=== PATIENT | male | born 1970 | race American Indian/Alaskan Native ===

== ENCOUNTER 2017-08-26 22:19 | Emergency (ER) | payer SELFPAY ==
[2017-08-26] MEDS ORDERED: ZOFRAN IV ONE (23:11)
[2017-08-26] MEDS ORDERED: ASPIRIN PO ONE (23:11)
[2017-08-26] MEDS ORDERED: NACL 0.9% 1000 ML 1,000 ML IV ONE (23:12)
[2017-08-26] MEDS ORDERED: PROVENTIL IH ONE (23:13)
[2017-08-26 23:44] LABS: Basophils % (Auto) 0.6 % (0.0-1.8); Hemoglobin 14.3 gm/dl (11.8-15.2); Lymphocytes # (Auto) 0.3 K/mm3 (1.2-5.4); Lymphocytes % (Auto) 7.8 % (13.4-35.0); Mean Corpuscular HGB Conc 33 % (32-34); Mean Corpuscular Hemoglobin 31 pg (28-32); Mean Corpuscular Volume 94 fl (84-94); Monocytes # (Auto) 0.4 K/mm3 (0.0-0.8); Platelet Count 103 K/mm3 (140-440); Red Cell Distribution Width 13.4 % (13.2-15.2)
[2017-08-27] LABS: BUN/Creatinine Ratio 18; Blood Urea Nitrogen 9 mg/dL (9-20); Calcium 10.2 mg/dL (8.4-10.2); Hemolysis Index 5
--- NOTE | 2017-08-27 08:35 | Emergency Department Report ---
ED Chest Pain HPI - General Chief Complaint: Chest Pain Stated Complaint: CP Time Seen by Provider: 08/27/17 08:23 Source: patient Mode of arrival: Ambulatory Limitations: No Limitations - History of Present Illness Initial Comments: Patient is 47 years old male with past medical history of hypertension. Presented to the ER with diffuse chest pain, sharp in nature no radiation. Pain associated with shortness of breath cough productive with yellowish sputum. Patient reported vomiting. No fever. MD Complaint: chest pain Pain Location: other (diffuse) Pain Radiation: none Severity: moderate Severity scale (0 -10): 10 Quality: sharp Consistency: intermittent Worsens With: inspiration re: nausea, vomting - Related Data Previous Rx's Medication Instructions Recorded Last Taken Type HYDROcodone/APAP 5-325 [[place] 1 each PO Q6HR PRN #20 tablet 07/12/16 Unknown Rx 5/325] Allergies Allergy/AdvReac Type Severity Reaction Status Date / Time No Known Allergies Allergy Verified 07/12/16 16:14 Heart Score - HEART Score History: Slightly suspicious EKG: Normal Age: 45-65 Risk factors: 1-2 risk factors Troponin: < normal limit HEART Score: 2 - Critical Actions Critical Actions: 0-3 pts:0.9-1.7%risk of adverse cardiac event.Candidate for discharge ED Review of Systems ROS: Stated complaint: CP Other details as noted in HPI Comment: All other systems reviewed and negative Constitutional: denies: chills, fever Respiratory: cough, shortness of breath, wheezing. denies: orthopnea Cardiovascular: chest pain, palpitations Gastrointestinal: nausea, vomiting. denies: abdominal pain, diarrhea, hematemesis, melena, hematochezia Genitourinary: denies: urgency Neurological: denies: headache, weakness, numbness, paresthesias ED Past Medical Hx - Past Medical History Hx Hypertension: Yes Additional medical history: High Cholesterol - Surgical History Past Surgical History?: No - Social History Smoking Status: Never Smoker Substance Use Type: None - Medications Home Medications: Home Medications Medication Instructions Recorded Confirmed Last Taken Type HYDROcodone/APAP 5-325 [[place] 1 each PO Q6HR PRN #20 tablet 07/12/16 Unknown Rx 5/325] ED Physical Exam - General Limitations: No Limitations General appearance: alert, other (patient was actively vomiting) - Head Head exam: Present: atraumatic, normocephalic, normal inspection - Eye Eye exam: Present: normal appearance, PERRL - ENT ENT exam: Present: normal exam, mucous membranes dry - Neck Neck exam: Present: normal inspection, full ROM. Absent: tenderness, meningismus, lymphadenopathy - Respiratory Respiratory exam: Present: respiratory distress, wheezes, rhonchi, accessory muscle use, decreased breath sounds, prolonged expiratory. Absent: rales, stridor, chest wall tenderness - Cardiovascular Cardiovascular Exam: Present: tachycardia. Absent: systolic murmur, diastolic murmur - GI/Abdominal GI/Abdominal exam: Present: soft, normal bowel sounds. Absent: distended, tenderness, guarding, rebound, rigid, organomegaly, mass, bruit, pulsatile mass , hernia - Back Exam Back exam: Present: normal inspection. Absent: tenderness, CVA tenderness (R), CVA tenderness (L), muscle spasm, paraspinal tenderness, vertebral tenderness - Neurological Exam Neurological exam: Present: alert, oriented X3, CN II-XII intact, normal gait, reflexes normal. Absent: abnormal gait, motor sensory deficit - Skin Skin exam: Present: warm, intact, normal color. Absent: cyanosis, diaphoretic, erythema, urticaria, petechiae ED Course Vital Signs 08/26/17 08/26/17 08/27/17 22:28 23:04 07:15 Temperature 98.2 F 98.2 F Pulse Rate 116 H 98 H Respiratory 18 18 15 Rate Blood Pressure 143/96 143/96 O2 Sat by Pulse 98 98 99 Oximetry 08/27/17 08/27/17 07:26 08:00 Temperature Pulse Rate 85 Respiratory 9 L Rate Blood Pressure 171/101 O2 Sat by Pulse 90 99 Oximetry FENG score - Feng Score Age > 65: (0) No Aspirin use within the Past 7 Days: (0) No 3 or more CAD Risk Factors: (0) No 2 or more Angina events in past 24 hrs: (0) No Known CAD with more than 50% Stenosis: (0) No Elevated Cardiac Markers: (0) No ST Deviation Greater than 0.5mm: (0) No FENG Score: 0 ED Medical Decision Making - Lab Data Result diagrams: 08/26/17 23:21 08/26/17 23:21 - EKG Data -: EKG Interpreted by Ak EKG shows normal: sinus rhythm - EKG Data Interpretation: no acute changes - Radiology Data Radiology results: image reviewed interpreted by me: Chest x-ray showed no acute abnormalities. Critical care attestation.: If time is entered above; I have spent that time in minutes in the direct care of this critically ill patient, excluding procedure time. ED Disposition Clinical Impression: Chest pain, Acute bronchitis Disposition: DC- TO HOME OR SELFCARE Is pt being admited?: No Condition: Stable Instructions: Chest Pain (ED), Acute Bronchitis (ED) Referrals: BRUCE REINOSO MD [Primary Care Provider] - 3-5 Days
[2017-08-27 10:35] VITALS: BP 161/102
--- NOTE | 2017-08-27 11:05 | XRay Report ---
AP CHEST: HISTORY: chest pain AP view of the chest demonstrates a normal mediastinal and cardiac contour with clear lungs and normal bony and soft tissue structures. IMPRESSION: Unremarkable AP chest.
== END 2017-08-27 10:42 | disposition home or self-care (01) ==
LOC: ED 22:19
DX: J20.9 Acute bronchitis, unspecified (principal); R07.89 Other chest pain; R11.10 Vomiting, unspecified; I10 Essential (primary) hypertension; E78.00 Pure hypercholesterolemia, unspecified
CPT/HCPCS: 36415; 71045; 80048; 84484; 85025; 93005; 93010; 96361; 96374; 99284; J2405; J7030

== ENCOUNTER 2018-06-05 08:33 | Emergency (ER) | payer OTHER ==
--- NOTE | 2018-06-05 10:09 | Emergency Department Report ---
HPI - General Chief Complaint: Medical Clearance Time Seen by Provider: 06/05/18 09:52 - HPI HPI: 47-year-old -Mex[place] male presents to the emergency department with his aunt and uncle, whom he lives with, with complaint of some delusions and hallucinations overnight. The patient says that he woke up around 1 in the morning and started seeing things that were not there. He thinks that he saw his cousin in his guest house and she was "changing the locks." He also says that he saw costumes Halloween type figures walking around. There was something also that bothered him about his pillow which she says is "stuffed" and when he poured apart, along with his blanket, he saw small animals there. He denies hearing any voices. He denies any suicidal or homicidal ideations. He denies any past psychiatric history. He has a medical history of hypertension. He denies any illicit drug use or tobacco abuse. The patient does drink daily but says he was not intoxicated at the time of these elucidations and/or delusions. He did drink yesterday. He denies any headache , chest pain, shortness of breath, tremors, nausea, vomiting or fever. ED Past Medical Hx - Past Medical History Previous Medical History?: Yes Hx Hypertension: Yes Additional medical history: High Cholesterol - Surgical History Past Surgical History?: No - Social History Smoking Status: Never Smoker Substance Use Type: Alcohol - Medications Home Medications: Home Medications Medication Instructions Recorded Confirmed Last Taken Type HYDROcodone/APAP 5-325 [[place] 1 each PO Q6HR PRN #20 tablet 07/12/16 Unknown Rx 5/325] Amoxicillin [Amoxicillin TAB] 875 mg PO BID #14 tablet 08/27/17 Unknown Rx Ondansetron [Zofran Odt] 4 mg PO Q8HR PRN #14 tab.rapdis 08/27/17 Unknown Rx RX: ALBUTEROL Inhaler (OR & NICU) 2 puff IH QID PRN #1 inhalation 08/27/17 Unknown Rx [ProAir HFA Inhaler] guaiFENesin/CODEINE [Robitussin AC] 10 ml PO TID PRN #100 ml 08/27/17 Unknown Rx ED Review of Systems ROS: Stated complaint: DELUSIONAL Other details as noted in HPI Comment: All other systems reviewed and negative Constitutional: denies: chills, fever Eyes: denies: eye pain, eye discharge, vision change ENT: denies: ear pain, throat pain Respiratory: denies: cough, shortness of breath, wheezing Cardiovascular: denies: chest pain, palpitations Gastrointestinal: denies: abdominal pain, nausea, diarrhea Genitourinary: denies: urgency, dysuria Musculoskeletal: denies: back pain, joint swelling, arthralgia Skin: denies: rash, lesions Neurological: denies: headache, weakness Psychiatric: visual hallucinations. denies: homicidal thoughts, suicidal thoughts Physical Exam - Physical Exam Vital Signs: Vital Signs 06/05/18 08:50 Temperature 99.5 F Pulse Rate 113 H Respiratory 18 Rate Blood Pressure 153/103 O2 Sat by Pulse 97 Oximetry Physical Exam: GENERAL: The patient is well-developed well-nourished. HEENT: Normocephalic. Atraumatic. Patient has moist mucous membranes. EYES: Extraocular motions are intact. Pupils are equal and reactive to light bilaterally. NECK: Supple. Trachea is midline. CHEST/LUNGS: Clear to auscultation. There is no respiratory distress noted. HEART/CARDIOVASCULAR: Regular. There is mild no tachycardia. There is no gallop rub or murmur. ABDOMEN: Abdomen is soft, nontender. Patient has normal bowel sounds. There is no abdominal distention. SKIN: Skin is warm and dry. NEURO: The patient is awake, alert, and oriented. The patient is cooperative. The patient has no focal neurologic deficits. The patient has normal speech and gait. MUSCULOSKELETAL: There is no tenderness or deformity. There is no limitation range of motion. There is no evidence of acute injury. PSYCH: Patient appears slightly anxious but otherwise is appropriate. ED Course Vital Signs 06/05/18 08:50 Temperature 99.5 F Pulse Rate 113 H Respiratory 18 Rate Blood Pressure 153/103 O2 Sat by Pulse 97 Oximetry ED Medical Decision Making - Lab Data Result diagrams: 06/05/18 10:07 06/05/18 10:07 - Medical Decision Making The patient presented with a complaint of some delusions and/or hallucinations that occurred overnight last night. However since being in the emergency department he has been awake, alert, calm and cooperative. No signs of any current delusions, hallucinations or responding to internal stimuli. She denies any suicidal or homicidal ideations. He does not appear to be someone who requires inpatient psychiatric treatment or to be made a 1013. His labs have been unremarkable other than some elevation in the liver enzymes that appears consistent with his daily alcohol consumption. His vital signs and stable throughout his ED course. He was seen by the psych assessment team that agrees with the assessment and for outpatient psychiatric follow-up. All of the imaging results and the plan for outpatient follow-up was discussed with the patient and his family and they understand and agree to the plan. - Differential Diagnosis alcohol withdrawal, schizophrenia, substance abuse Critical Care Time: No Critical care attestation.: If time is entered above; I have spent that time in minutes in the direct care of this critically ill patient, excluding procedure time. ED Disposition Clinical Impression: Delusions, Hallucinations Disposition: DC-01 TO HOME OR SELFCARE Is pt being admited?: No Condition: Stable Additional Instructions: You were seen today regarding the delusions and/or hallucinations that she had last night/early this morning. Please return to the emergency department immediately if these delusions return or if any further concerns or acute distress. It is recommended that he follow up with the [facility] but we have also given a referral for the [facility] on [address] to follow-up for further psychiatric evaluation. Please make sure to also follow up with your primary care physician regarding the elevated liver enzymes found on the labs that were done today. It is recommended that you quit drinking alcohol. Referrals: [facility] [Other] - [facility] [Outside] - 2-3 Days Time of Disposition: 14:03
[2018-06-05 10:41] LABS: Hematocrit 38.5 % (35.5-45.6); Hemoglobin 13.4 gm/dl (11.8-15.2); Mean Corpuscular HGB Conc 35 % (32-34); Mean Corpuscular Hemoglobin 32 pg (28-32); Mean Corpuscular Volume 92 fl (84-94); Red Blood Count 4.17 M/mm3 (3.65-5.03); Red Cell Distribution Width 13.2 % (13.2-15.2)
--- NOTE | 2018-06-05 10:42 | Cat Scan Report ---
CT HEAD WITHOUT CONTRAST: HISTORY: Altered mental status. TECHNIQUE: Sequential 2.5mm CT images. COMPARISON: none. FINDINGS: Cerebral Parenchyma: Within normal limits. Cerebellum: Within normal limits. Brainstem: Within normal limits. Ventricles: Normal. Sella: Normal. Extra-axial spaces: Normal. Basal Cisterns: Normal. Intracranial Hemorrhage: None. Midline Shift: None. Calvarium: Normal. Sinuses: Normal. Mastoid Air Cells: Normal. Visualized Orbits: Normal. IMPRESSION: Cranial CT scan within normal limits.
[2018-06-05 11:02] LABS: Bilirubin,Urine NEG (Negative); Blood,Urine SM (Negative); Color,Urine Straw (Yellow); Protein,Urine <15 mg/dL mg/dL (Negative); Urobilinogen,Urine < 2.0 mg/dL (<2.0); WBC,Urine < 1.0 /HPF (0.0-6.0)
[2018-06-05 11:34] LABS: Basophils % (Manual) 0 % (0.0-1.8); Eosinophils % (Manual) 0 % (0.0-4.3); Total Cells Counted 100
[2018-06-05 11:35] LABS: Platelet Estimate Cons; Stomatocytes Few
[2018-06-05 11:36] LABS: Platelet Count 168 K/mm3 (140-440)
[2018-06-05 11:45] LABS: Alanine Aminotransferase 62 units/L (7-56); Albumin 4.9 g/dL (3.9-5); BUN/Creatinine Ratio 25; Blood Urea Nitrogen 15 mg/dL (9-20); Calcium 9.9 mg/dL (8.4-10.2); Hemolysis Index 7
[2018-06-05 11:46] LABS: Amphetamine Screen,Urine PRESUMPTIVE NEGATIVE; Benzodiazepines Screen,Urine PRESUMPTIVE NEGATIVE; Cannabinoid Screen,Urine PRESUMPTIVE NEGATIVE; Cocaine Screen,Urine PRESUMPTIVE NEGATIVE; Methadone Screen,Urine PRESUMPTIVE NEGATIVE; Opiate Screen,Urine PRESUMPTIVE NEGATIVE
[2018-06-05 14:16] VITALS: BP 135/85
== END 2018-06-05 14:30 | disposition home or self-care (01) ==
LOC: ED 08:33
DX: F22 Delusional disorders (principal); R44.1 Visual hallucinations; I10 Essential (primary) hypertension; E78.00 Pure hypercholesterolemia, unspecified
CPT/HCPCS: 36415; 70450; 80053; 80307; 81001; 82140; 84443; 85007; 85025; 99284; G0480; 80320

== ENCOUNTER 2019-08-02 14:33 | Inpatient (IN) | payer OTHER ==
[2019-08-02] MEDS ORDERED: SODIUM CHLORIDE 0.9% 1000 ML 1,000 ML IV ONE (14:54)
--- NOTE | 2019-08-02 15:11 | Emergency Department Report ---
ED General Adult HPI - General Chief complaint: Chest Pain Stated complaint: FLU SX/CHEST PAIN/FEVER Time Seen by Provider: 08/02/19 14:48 Source: patient Mode of arrival: Ambulatory Limitations: No Limitations - History of Present Illness Initial comments: Patient is a 48-year-old male up since emergency room complaints of flulike symptoms, chest pain and fever. Patient states he's also had nausea and vomiting. Patient states his symptoms started yesterday. Patient states he had flu vaccine this year. Patient denies dizziness. Patient states he is fatigued. She also complains of shortness of breath. Patient states his symptoms are better with rest and worse with exertion. Patient states his chest pain is a 6 out of 10. Patient states his chest pain is nonradiating. Patient states chest pain is in the center of his chest. Patient was found to be diaphoretic and fatigued and hypotensive in triage and brought directly to patient care room. -: Sudden, days(s) (1 day ago) Severity scale (0 -10): 6 Quality: stabbing Consistency: constant Improves with: rest Worsens with: other Associated Symptoms: chest pain, cough, diaphoresis, fever/chills, loss of appet ite, malaise, nausea/vomiting, shortness of breath, weakness. denies: rash, seizure, syncope - Related Data Previous Rx's Medication Instructions Recorded Last Taken Type Lisinopril [Zestril TAB] 40 mg PO QDAY #30 tablet 07/21/18 Unknown Rx Pantoprazole [Protonix] 40 mg PO QDAY #30 tablet 07/21/18 Unknown Rx Metoprolol [Lopressor TAB] 100 mg PO BID #60 tablet 07/22/18 Unknown Rx Allergies Allergy/AdvReac Type Severity Reaction Status Date / Time No Known Allergies Allergy Verified 07/12/16 16:14 ED Review of Systems ROS: Stated complaint: FLU SX/CHEST PAIN/FEVER Other details as noted in HPI Constitutional: chills, diaphoresis, fever, malaise, weakness Eyes: denies: eye pain, eye discharge, vision change ENT: denies: ear pain, throat pain Respiratory: cough, shortness of breath. denies: wheezing Cardiovascular: chest pain. denies: palpitations Endocrine: no symptoms reported Gastrointestinal: abdominal pain, nausea, vomiting. denies: diarrhea Genitourinary: denies: urgency, dysuria Musculoskeletal: denies: back pain, joint swelling, arthralgia Skin: denies: rash, lesions Neurological: weakness. denies: headache, paresthesias Psychiatric: denies: anxiety, depression Hematological/Lymphatic: denies: easy bleeding, easy bruising ED Past Medical Hx - Past Medical History Previous Medical History?: Yes Hx Hypertension: Yes Hx Congestive Heart Failure: No Hx Diabetes: No Hx Asthma: No Hx COPD: No Hx HIV: No Additional medical history: High Cholesterol - Surgical History Past Surgical History?: No - Family History Family history: no significant - Social History Smoking Status: Never Smoker Substance Use Type: None - Medications Home Medications: Home Medications Medication Instructions Recorded Confirmed Last Taken Type Lisinopril [Zestril TAB] 40 mg PO QDAY #30 tablet 07/21/18 08/02/19 Unknown Rx Pantoprazole [Protonix] 40 mg PO QDAY #30 tablet 07/21/18 08/02/19 Unknown Rx Metoprolol [Lopressor TAB] 100 mg PO BID #60 tablet 07/22/18 08/02/19 Unknown Rx ED Physical Exam - General Limitations: No Limitations General appearance: alert, in distress - Head Head exam: Present: atraumatic, normocephalic - Eye Eye exam: Present: normal appearance - ENT ENT exam: Present: mucous membranes moist - Neck Neck exam: Present: normal inspection - Respiratory Respiratory exam: Present: normal lung sounds bilaterally. Absent: respiratory distress, wheezes, rales - Cardiovascular Cardiovascular Exam: Present: regular rate, normal rhythm. Absent: systolic murmur, diastolic murmur, rubs, gallop - GI/Abdominal GI/Abdominal exam: Present: soft, tenderness, normal bowel sounds. Absent: distended, guarding, rebound - Rectal Rectal exam: Present: deferred - Extremities Exam Extremities exam: Present: normal inspection - Back Exam Back exam: Present: normal inspection - Neurological Exam Neurological exam: Present: alert, oriented X3 - Psychiatric Psychiatric exam: Present: normal affect, normal mood - Skin Skin exam: Present: warm, intact, normal color, diaphoretic. Absent: rash ED Course Vital Signs 08/02/19 08/02/19 08/02/19 14:42 14:46 15:00 Temperature Pulse Rate 85 90 89 Respiratory 17 13 10 L Rate Blood Pressure 134/92 131/96 Blood Pressure [Right] O2 Sat by Pulse 100 100 Oximetry 08/02/19 08/02/19 08/02/19 15:37 15:46 16:00 Temperature 98.5 F Pulse Rate 88 91 H 80 Respiratory 18 10 L 18 Rate Blood Pressure 148/103 115/60 Blood Pressure 148/103 [Right] O2 Sat by Pulse 100 99 100 Oximetry 08/02/19 08/02/19 08/02/19 16:16 16:30 16:46 Temperature Pulse Rate 97 H 100 H 99 H Respiratory 16 12 12 Rate Blood Pressure 149/121 149/121 149/121 Blood Pressure [Right] O2 Sat by Pulse 97 99 98 Oximetry 08/02/19 08/02/19 08/02/19 17:00 17:16 17:30 Temperature Pulse Rate 103 H 95 H 98 H Respiratory 11 L 9 L 12 Rate Blood Pressure 149/121 119/78 119/78 Blood Pressure [Right] O2 Sat by Pulse 98 100 98 Oximetry 08/02/19 08/02/19 08/02/19 17:46 18:00 18:49 Temperature Pulse Rate 99 H 98 H 93 H Respiratory 12 12 19 Rate Blood Pressure 119/78 173/107 159/93 Blood Pressure [Right] O2 Sat by Pulse 97 100 Oximetry 08/02/19 08/02/19 08/02/19 19:00 19:16 19:30 Temperature Pulse Rate 87 92 H 93 H Respiratory 10 L 13 10 L Rate Blood Pressure 152/88 152/88 173/107 Blood Pressure [Right] O2 Sat by Pulse 98 98 99 Oximetry 08/02/19 08/02/19 08/02/19 19:46 20:00 20:10 Temperature Pulse Rate 91 H 89 106 H Respiratory 12 10 L 14 Rate Blood Pressure 159/93 192/108 192/108 Blood Pressure [Right] O2 Sat by Pulse 98 98 98 Oximetry 08/02/19 08/02/19 08/02/19 20:20 20:30 20:40 Temperature Pulse Rate 93 H 90 105 H Respiratory 20 12 17 Rate Blood Pressure 192/108 192/108 192/108 Blood Pressure [Right] O2 Sat by Pulse 99 97 97 Oximetry 08/02/19 08/02/19 08/02/19 20:50 21:00 21:09 Temperature 98 F Pulse Rate 87 82 Respiratory 12 15 Rate Blood Pressure 192/108 192/108 Blood Pressure [Right] O2 Sat by Pulse 98 99 Oximetry 08/02/19 21:10 Temperature Pulse Rate 84 Respiratory 15 Rate Blood Pressure 186/108 Blood Pressure [Right] O2 Sat by Pulse 99 Oximetry - Reevaluation(s) Reevaluation #1: Patient states better. Patient's heart rate improved. Patient's blood pressure stable. Patient has not had any further hypotension the ER. His initial blood pressure when he arrived to the acute care area of the ER was 140/60. 08/02/19 16:13 Reevaluation #2: Patient states he still having chest pain. 08/02/19 18:14 Reevaluation #3: Discussed all results with patient. I discussed plan of care patient. Patient agrees with plan of care and admission. Patient admitted to the hospitalist service. 08/02/19 20:15 - Consultations Consultation #1: 08/02/19 20:13 Hospitalist consulted for admission. Hospitalist to admit patient. ED Medical Decision Making - Lab Data Result diagrams: 08/02/19 15:29 08/02/19 15:29 - EKG Data -: EKG Interpreted by Me EKG shows normal: sinus rhythm, axis, intervals, QRS complexes, ST-T waves Rate: normal - EKG Data Interpretation: [facility] - Radiology Data Radiology results: report reviewed, image reviewed interpreted by me: No acute findings on chest x-ray. ADDENDUM CT abdomen pelvis w con INDICATION / CLINICAL INFORMATION: fever. TECHNIQUE: Axial CT imaging of abdomen and pelvis was obtained with IV contrast. Coronal and sagittal reformatted imaging obtained and reviewed. All CT scans at this location are performed using CT dose reduction for ALARA by means of automated exposure control. COMPARISON: 07/20/2018 FINDINGS: CT abdomen with contrast shows hepatic steatosis. Spleen, pancreas, kidneys, and adrenal glands all appear unremarkable. No gallbladder abnormality or biliary dilatation. CT pelvis is unremarkable. No pelvic mass, free fluid, or focal inflammatory ch idania. A normal appendix is present in the right lower quadrant. GI tract is grossly unremarkable. There is focal airspace disease in the right lower lobe posteriorly suggestive of pneumonia. No pleural effusion. No significant osseous abnormality. IMPRESSION: 1. No acute finding within the abdomen or pelvis. 2. Hepatic steatosis. 3. Right lower lobe airspace disease, most likely pneumonia. TD/TT: / CTA CHEST WITH IV CONTRAST INDICATION / CLINICAL INFORMATION: MAIN: fever N/V [id number] 100ML. TECHNIQUE: Axial CT images were obtained through the chest after injection of 100 mL IV contrast. 3 plane MIP and/or 3D reconstructions were produced. All CT scans at this location are performed using CT dose reduction for ALARA by means of automated exposure control. COMPARISON: Prior CTA chest, 07/20/2018 FINDINGS: PULMONARY ARTERIES: No pulmonary emboli. THORACIC AORTA: No significant abnormality. HEART: No significant abnormality. CORONARY ARTERIES: No significant calcification. PLEURA: No pleural effusion. No pneumothorax. LYMPH NODES: No significant adenopathy. LUNGS: Small amount of parenchymal disease is noted in the posterior right lower lobe possibly 3. Hepatic steatosis. ADDITIONAL FINDINGS: None. UPPER ABDOMEN: Prominent hepatic steatosis. SKELETAL STRUCTURES: No significant osseous abnormality. IMPRESSION: 1. No CT evidence for pulmonary embolism. 2. Right lower lobe parenchymal disease suspicious for pneumonia. - Medical Decision Making Patient is a 48-year-old [facility] emergency room with multiple complaints. Patient's complaints of chest pain, nausea vomiting, fever or chills, diaphoresis, abdominal pain, shortness of breath. Patient's initial blood pressure in triage was extremely low however patient has had normal blood pressures the entire time in the acute care of the ER. Patient was tachycardic. Patient given fluids. Patient/markable for metabolic acidosis, lactic acidosis, dehydration, normal WBC. Patient had a chest x-ray which was negative for acute findings. Patient then had a CTA to rule out a PE in found to have no PE but a right lower lobe pneumonia. Patient also had a CT of the abdomen due to his fever, nausea and vomiting, abdominal tenderness and no acute findings on abdominal CT. Patient admitted to the hospitalist service. - Differential Diagnosis pna. fever. cp. sob. pe. uri. cough. abd pain. viral gastro. Critical Care Time: Yes Critical care time in (mins) excluding proc time.: 65 Critical care attestation.: If time is entered above; I have spent that time in minutes in the direct care of this critically ill patient, excluding procedure time. Critical Care Time: 65 minutes ED Disposition Clinical Impression: Diaphoresis, Metabolic acidosis, Lactic acid acidosis Chest pain Qualifiers: Chest pain type: unspecified Qualified Code(s): R07.9 - Chest pain, unspecified Nausea & vomiting Qualifiers: Vomiting type: unspecified Vomiting Intractability: intractable Qualified Code(s): R11.2 - Nausea with vomiting, unspecified Fever Qualifiers: Fever type: unspecified Qualified Code(s): R50.9 - Fever, unspecified Pneumonia Qualifiers: Laterality: right Lung location: lower lobe of lung Abdominal pain Qualifiers: Abdominal location: generalized Qualified Code(s): R10.84 - Generalized abdominal pain Disposition: 09 OP ADMIT IP TO THIS HOSP Is pt being admited?: Yes Does the pt Need Aspirin: No Condition: Critical Time of Disposition: 20:08
[2019-08-02 16:02] LABS: Basophils % (Auto) 0.6 % (0.0-1.8); Eosinophils % (Auto) 0.3 % (0.0-4.3); Hematocrit 46.9 % (35.5-45.6); Hemoglobin 15.6 gm/dl (11.8-15.2); Lymphocytes # (Auto) 0.6 K/mm3 (1.2-5.4); Lymphocytes % (Auto) 9.5 % (13.4-35.0); Mean Corpuscular HGB Conc 33 % (32-34); Mean Corpuscular Volume 94 fl (84-94); Monocytes # (Auto) 0.7 K/mm3 (0.0-0.8); Monocytes % (Auto) 11.4 % (0.0-7.3); Platelet Count 278 K/mm3 (140-440); Red Blood Count 4.98 M/mm3 (3.65-5.03); Red Cell Distribution Width 13.8 % (13.2-15.2)
[2019-08-02 16:22] LABS: Alanine Aminotransferase 26 units/L (7-56); Albumin 4.7 g/dL (3.9-5); BUN/Creatinine Ratio 9; Blood Urea Nitrogen 7 mg/dL (9-20); Calcium 9.9 mg/dL (8.4-10.2); Hemolysis Index 85
[2019-08-02] MEDS ORDERED: SODIUM CHLORIDE 0.9% 1000 ML IV SOLN IV ONE (17:07)
[2019-08-02 17:21] LABS: Bilirubin,Urine NEG (Negative); Blood,Urine SM (Negative); Color,Urine Yellow (Yellow); Urobilinogen,Urine < 2.0 mg/dL (<2.0)
[2019-08-02] MEDS ORDERED: CEFEPIME/NS 2 GM/100 ML 2 GM/100 ML BAG IV ONE (17:33)
--- NOTE | 2019-08-02 19:05 | Cat Scan Report ---
CTA CHEST WITH IV CONTRAST INDICATION / CLINICAL INFORMATION: MAIN: fever N/V X2DAYS [id number] 100ML. TECHNIQUE: Axial CT images were obtained through the chest after injection of 100 mL IV contrast. 3 plane MIP an d/or 3D reconstructions were produced. All CT scans at this location are performed using CT dose redu ction for [facility] by means of automated exposure control. COMPARISON: Prior CTA chest, 07/20/2018 FINDINGS: PULMONARY ARTERIES: No pulmonary emboli. THORACIC AORTA: No significant abnormality. HEART: No significant abnormality. CORONARY ARTERIES: No significant calcification. PLEURA: No pleural effusion. No pneumothorax. LYMPH NODES: No significant adenopathy. LUNGS: Small amount of parenchymal disease is noted in the posterior right lower lobe possibly 3. Hepatic steatosis. ADDITIONAL FINDINGS: None. UPPER ABDOMEN: Prominent hepatic steatosis. SKELETAL STRUCTURES: No significant osseous abnormality. IMPRESSION: 1. No CT evidence for pulmonary embolism. 2. Right lower lobe parenchymal disease suspicious for pneumonia. Signer Name: Bridgette Caldwell MD Signed: 08/02/2019 7:00 PM Workstation Name: [id number]
--- NOTE | 2019-08-02 19:14 | Cat Scan Report ---
CTA CHEST WITH IV CONTRAST INDICATION / CLINICAL INFORMATION: cp. sob. TECHNIQUE: Axial CT images were obtained through the chest after injection of 100 mL IV contrast. 3 plane MIP an d/or 3D reconstructions were produced. All CT scans at this location are performed using CT dose redu ction for [facility] by means of automated exposure control. COMPARISON: None available. FINDINGS: PULMONARY ARTERIES: No pulmonary emboli. THORACIC AORTA: No significant abnormality. HEART: No significant abnormality. CORONARY ARTERIES: No significant calcification. PLEURA: No pleural effusion. No pneumothorax. LYMPH NODES: No significant adenopathy. LUNGS: Small amount of parenchymal disease is present in the posterior segment of the right lower lob e most likely representing small area of pneumonia. The remainder of the lungs are clear. ADDITIONAL FINDINGS: None. UPPER ABDOMEN: Hepatic steatosis. SKELETAL STRUCTURES: No significant osseous abnormality. IMPRESSION: 1. No CT evidence for pulmonary embolism. 2. Right lower lobe airspace disease most likely pneumonia. Signer Name: Bridgette Caldwell MD Signed: 08/02/2019 7:09 PM Workstation Name: [id number]
--- NOTE | 2019-08-02 19:31 | XRay Report ---
CHEST 1 VIEW 3:52 PM INDICATION / CLINICAL INFORMATION: fever.. COMPARISON: 06/23/18 FINDINGS: SUPPORT DEVICES: None. HEART / MEDIASTINUM: No significant abnormality. LUNGS / PLEURA: No significant pulmonary or pleural abnormality. No pneumothorax. ADDITIONAL FINDINGS: No significant additional findings. IMPRESSION: 1. No acute findings. No significant change. Signer Name: Errol Canas MD Signed: 08/02/2019 7:27 PM Workstation Name: [id number]
--- NOTE | 2019-08-02 20:25 | History and Physical Report ---
History of Present Illness Chief complaint: I feel sick, I dont know whats wrong with me History of present illness: 48 YO Male with HTN, HLD, Malnutrition presents to ED for evaluation. Pt states that he has experienced generalized weakness, malaise, subjective fever, nausea, and pain in the right side of his chest over the past 2 days, with persistently worsening symptoms over the past 1 day. Pt states that pain is 6/10, sharp, intermittent, substernal, nonradiating, worsened with exertion and deep breathing, relieved with rest. Pt acknowledges shortness of breath, nausea. Pt acknowledges influenza exposure. Pt transported to [facility] via private vehicle for further care and evaluation. Pt seen and evaluated in ED and found to have evidence of RLL Pneumonia on CT scan of the chest. Pt is diaphoretic and complai ns of chest discomfort with deep breathing. Pt admitted to medical floor and initiated on Pneumonia protocol for symptom management and further monitoring to assess response to treatment and possible decompensation. Pt prior cardiac workup on 07/06 reviewed. Pt denies chills, palpitations, trauma, prolonged travel/immobility, unilateral leg swelling, calf pain, individual/family history of DVT/PE/Blood Clotting Disorders. Prior admission on 07/20/18 reviewed. All medication listed at time of admission has been reconciled. Past History Past Medical History: hypertension, hyperlipidemia, other (see HPI) Past Surgical History: No surgical history, Other (reviewed) Social history: single. denies: smoking, alcohol abuse, prescription drug abuse Family history: CAD, hypertension Medications and Allergies Allergies Allergy/AdvReac Type Severity Reaction Status Date / Time No Known Allergies Allergy Verified 07/12/16 16:14 Home Medications Medication Instructions Recorded Confirmed Last Taken Type Lisinopril [Zestril TAB] 40 mg PO QDAY #30 tablet 07/21/18 08/02/19 Unknown Rx Pantoprazole [Protonix] 40 mg PO QDAY #30 tablet 07/21/18 08/02/19 Unknown Rx Metoprolol [Lopressor TAB] 100 mg PO BID #60 tablet 07/22/18 08/02/19 Unknown Rx Review of Systems Constitutional: fever, weakness, malaise, no weight loss, no weight gain Ears, nose, mouth and throat: no ear pain, no ear discharge, no tinnitis, no decreased hearing, no nose pain, no nasal congestion, no nasal discharge Cardiovascular: no chest pain, no orthopnea, no palpitations, no edema Respiratory: no cough, no cough with sputum, no hemoptysis Gastrointestinal: nausea, no abdominal pain, no vomiting, no diarrhea, no constipation, no hematemesis Genitourinary Male: no hematuria, no flank pain, no discharge, no urinary frequency, no urinary hesitancy Rectal: no pain, no incontinence, no bleeding Musculoskeletal: no neck stiffness, no neck pain, no low back pain, no shooting leg pain Integumentary: no rash, no pruritis, no redness, no sores, no wounds, no jaundice Neurological: no head injury, no transient paralysis, no paralysis, no weakness, no parathesias, no numbness, no tingling Psychiatric: no anxiety, no memory loss, no change in sleep habits, no sleep disturbances, no insomnia, no hypersomnia, no change in appetite Endocrine: no cold intolerance, no heat intolerance, no polyphagia, no excessive thirst, no polydipsia, no polyuria, no nocturia, no flushing Hematologic/Lymphatic: no easy bruising, no easy bleeding, no lymphedema Allergic/Immunologic: no urticaria, no allergic rhinitis, no wheezing, no persistent infections, no anaphylaxis Exam - Constitutional Vitals: Temp Pulse Resp BP Pulse Ox 98.5 F 91 H 12 159/93 98 08/02/19 16:00 08/02/19 19:46 08/02/19 19:46 08/02/19 19:46 08/02/19 19:46 General appearance: Present: mild distress - EENT Eyes: Present: PERRL ENT: hearing intact, clear oral mucosa - Neck Neck: Present: supple, normal ROM - Respiratory Respiratory effort: normal Respiratory: right: diminished - Cardiovascular Heart Sounds: Present: S1 & S2. Absent: rub, click - Extremities Extremities: pulses symmetrical, No edema Peripheral Pulses: within normal limits - Abdominal General gastrointestinal: Present: soft, non-tender, non-distended, normal bowel sounds Male genitourinary: Present: normal - Integumentary Integumentary: Present: clear, warm, dry - Musculoskeletal Musculoskeletal: gait normal, strength equal bilaterally - Psychiatric Psychiatric: appropriate mood/affect, intact judgment & insight - Neurologic Neurologic: CNII-XII intact, moves all extremities Results - Labs CBC & Chem 7: 08/02/19 15:29 12/15/19 15:29 Labs: Abnormal lab results 08/02/19 08/02/19 08/02/19 Range/Units 15:29 15:29 15:29 Hgb 15.6 H (11.8-15.2) gm/dl Hct 46.9 H (35.5-45.6) % Lymph % (Auto) 9.5 L (13.4-35.0) % Robeson % (Auto) 11.4 H (0.0-7.3) % Lymph # 0.6 L (1.2-5.4) K/mm3 Seg Neutrophils % 78.2 H (40.0-70.0) % Sodium 134 L (137-145) mmol/L Chloride 90.8 L (98-107) mmol/L Carbon Dioxide 21 L (22-30) mmol/L BUN 7 L (9-20) mg/dL Glucose 106 H (75-100) mg/dL Lactic Acid 2.20 H* (0.7-2.0) mmol/L AST 56 H (5-40) units/L Total Creatine Kinase (55-170) units/L Total Protein 8.7 H (6.3-8.2) g/dL 08/02/19 Range/Units 17:20 Hgb (11.8-15.2) gm/dl Hct (35.5-45.6) % Lymph % (Auto) (13.4-35.0) % Robeson % (Auto) (0.0-7.3) % Lymph # (1.2-5.4) K/mm3 Seg Neutrophils % (40.0-70.0) % Sodium (137-145) mmol/L Chloride (98-107) mmol/L Carbon Dioxide (22-30) mmol/L BUN (9-20) mg/dL Glucose (75-100) mg/dL Lactic Acid (0.7-2.0) mmol/L AST (5-40) units/L Total Creatine Kinase 173 H (55-170) units/L Total Protein (6.3-8.2) g/dL Assessment and Plan - Patient Problems (1) Pneumonia Current Visit: Yes Status: Acute Qualifiers: Laterality: right Lung location: lower lobe of lung Plan to address problem: Pneumonia protocol: IV antibiotic therapy, CBC, CMP, Chest X ray, CT Chest, supplemental oxygen, nebulizer therapy, pulse oximetry, NIPPV as clinically indicated, blood culture, (2) Hyponatremia syndrome Current Visit: Yes Status: Acute (3) HTN (hypertension) Current Visit: Yes Status: Acute Qualifiers: Hypertension type: unspecified Qualified Code(s): I10 - Essential (primary) hypertension Plan to address problem: IVF resuscitation therapy (4) HLD (hyperlipidemia) Current Visit: Yes Status: Acute Qualifiers: Hyperlipidemia type: mixed hyperlipidemia Qualified Code(s): E78.2 - Mixed hyperlipidemia Plan to address problem: low fat low cholesterol diet, supportive care (5) DVT prophylaxis Current Visit: Yes Status: Acute Plan to address problem: SCD to BLE while in bed, Pt ambulatory
[2019-08-02] MEDS ORDERED: ACETAMINOPHEN 325 MG TAB PO PRN (20:28)
[2019-08-02] MEDS ORDERED: ALBUTEROL 2.5 MG/3 ML NEBU IH PRN (20:28)
[2019-08-02] MEDS ORDERED: ONDANSETRON 4 MG/2 ML INJ IV PRN (20:28)
[2019-08-03] MEDS ORDERED: cefTRIAXone/NS 2 GM/100 ML 2 GM/100 ML BAG IV SCH (10:00)
[2019-08-03] MEDS ORDERED: AZITHROMYCIN 500 MG in SODIUM CHLORIDE 0.9% 250ML 250 ML IV SCH (10:00)
[2019-08-03 11:10] LABS: Basophils % (Auto) 0.7 % (0.0-1.8); Eosinophils % (Auto) 0.8 % (0.0-4.3); Hematocrit 39.1 % (35.5-45.6); Hemoglobin 13.3 gm/dl (11.8-15.2); Lymphocytes # (Auto) 0.5 K/mm3 (1.2-5.4); Lymphocytes % (Auto) 10.9 % (13.4-35.0); Mean Corpuscular HGB Conc 34 % (32-34); Mean Corpuscular Volume 93 fl (84-94); Monocytes # (Auto) 0.6 K/mm3 (0.0-0.8); Monocytes % (Auto) 12.9 % (0.0-7.3); Platelet Count 241 K/mm3 (140-440); Red Blood Count 4.21 M/mm3 (3.65-5.03); Red Cell Distribution Width 13.6 % (13.2-15.2)
[2019-08-03 11:31] LABS: BUN/Creatinine Ratio 12; Blood Urea Nitrogen 7 mg/dL (9-20); Calcium 9.2 mg/dL (8.4-10.2); Hemolysis Index 6
[2019-08-03 11:58] VITALS: BP 155/97
--- NOTE | 2019-08-03 12:10 | Discharge Summary ---
Providers - Providers Date of Admission: 08/02/19 20:29 Attending physician: DMITRIY IVERSON MD [facility] Reason for admission: Pneumonia Condition: Stable Hospital course: 48 YO Male with HTN, HLD, Malnutrition presents to ED for evaluation. Pt states that he has experienced generalized weakness, malaise, subjective fever, nausea, and pain in the right side of his chest over the past 2 days, with persistently worsening symptoms over the past 1 day. Pt states that pain is 6/10, sharp, intermittent, substernal, nonradiating, worsened with exertion and deep breathing, relieved with rest. Pt acknowledges shortness of breath, nausea. Pt acknowledges influenza exposure. Pt transported to [facility] via private vehicle for further care and evaluation. Pt seen and evaluated in ED and found to have evidence of RLL Pneumonia on CT scan of the chest. Pt is diaphoretic and complains of chest discomfort with deep breathing. Pt admitted to medical floor and initiated on Pneumonia protocol for symptom management and further monitoring to assess response to treatment and possible decompensation. Pt prior cardiac workup on 07/06 reviewed. Pt denies chills, palpitations, trauma, prolonged travel/immobility, unilateral leg swelling, calf pain, individual/family history of DVT/PE/Blood Clotting Disorders. Prior admission on 07/20/18 reviewed. All medication listed at time of admission has been reconciled. ct abdomen and plevis including chest- lobar pneumonia Started empiric antibiotic coverage, he improved faster than expected, sodium improved chest pain resolved. I recommended that the patient follow-up with primary care physician and also with primary safe and vault installer for possible stress testing was seen recently by cardiology in the hospital. The recommendations at that time was also reinforced. patient is clinically stable, no fever, no leukocytosis, no oxygen requirement (1) Pneumonia (2) Hyponatremia syndrome (3) HTN (hypertension) (4) HLD (hyperlipidemia) Disposition: - TO HOME OR SELFCARE Time spent for discharge: 35 mins Core Measure Documentation - Palliative Care Palliative Care/ Comfort Measures: Not Applicable - Core Measures Any of the following diagnoses?: none Exam - Physical Exam Narrative exam: VITAL SIGNS: Reviewed. GENERAL: The patient appears normally developed, Vital signs as documented. HEAD: No signs of head trauma. EYES: Pupils are equal. Extraocular motions intact. EARS: Hearing grossly intact. MOUTH: Oropharynx is normal. NECK: No adenopathy, no JVD. CHEST: Chest with clear breath sounds bilaterally. No wheezes, rales, or rhonchi. CARDIAC: Regular rate and rhythm. S1 and S2, without murmurs, gallops, or rubs. VASCULAR: No Edema. Peripheral pulses normal and equal in all extremities. ABDOMEN: Soft, non tender and non distended. No rebound or guarding, and no masses palpated. Bowel Sounds normal. MUSCULOSKELETAL: Good range of motion of all major joints. Extremities without clubbing, cyanosis or edema. NEUROLOGIC EXAM: Alert and oriented x 3 No focal sensory or strength deficits. Speech normal. Follows commands. PSYCHIATRIC: Mood normal. SKIN: detial exam as documented in skin assessment - Constitutional Vitals: Temp Pulse Resp BP Pulse Ox 98.6 F 85 19 155/97 100 08/03/19 11:35 08/03/19 11:35 08/03/19 11:35 08/03/19 11:35 08/03/19 11:35 Plan Activity: advance as tolerated, fall precautions Diet: low fat, low cholesterol Special Instructions: record daily weights, record daily BP diary [facility] Provider[facility] - 7 Days Prescriptions: levoFLOXacin [Levaquin] 750 mg PO QDAY #7 tablet
== END 2019-08-03 14:08 | disposition home or self-care (01) | DRG 194 ==
LOC: ED 14:33 → 3A 20:29
PROVIDERS: ADMIT Internal Medicine; ATTEND Internal Medicine
DX: J18.9 Pneumonia, unspecified organism (principal); E87.1 Hypo-osmolality and hyponatremia; E46 Unspecified protein-calorie malnutrition; E87.2 Acidosis; E78.2 Mixed hyperlipidemia; I10 Essential (primary) hypertension; Z68.21 Body mass index [BMI] 21.0-21.9, adult; Z82.49 Family history of ischemic heart disease and other diseases of the circulatory system; Z79.899 Other long term (current) drug therapy
CPT/HCPCS: 36415; 71045; 71275; 74177; 80048; 80053; 81001; 82140; 82550; 83880; 84484; 85025; 87040; 87086; 87116; 87400; 87430; 93005; 93010; G0378; J0456; J0692; J0696; J7030; J7050; Q9967

== ENCOUNTER 2021-10-14 20:44 | Emergency (ER) | payer OTHER ==
[2021-10-14] MEDS ORDERED: ASPIRIN 325 MG TAB PO ONE (21:24)
--- NOTE | 2021-10-14 22:03 | XRay Report ---
CHEST 2 VIEWS INDICATION / CLINICAL INFORMATION: chest pain. COMPARISON: 05/08/2020 FINDINGS: SUPPORT DEVICES: None. HEART / MEDIASTINUM: No significant abnormality. LUNGS / PLEURA: No significant pulmonary or pleural abnormality. No pneumothorax. ADDITIONAL FINDINGS: No significant additional findings. IMPRESSION: 1. No acute findings. Signer Name: David Berkowitz DO Signed: 10/14/2021 9:59 PM Workstation Name: [id number]
[2021-10-14 22:16] LABS: Basophils % (Auto) 0.7 % (0.0-1.8); Hematocrit 45.3 % (35.5-45.6); Hemoglobin 14.9 gm/dl (11.8-15.2); Lymphocytes # (Auto) 0.3 K/mm3 (1.2-5.4); Mean Corpuscular HGB Conc 33 % (32-34); Mean Corpuscular Volume 93 fl (84-94); Monocytes # (Auto) 0.3 K/mm3 (0.0-0.8); Platelet Count 120 K/mm3 (140-440); Red Blood Count 4.89 M/mm3 (3.65-5.03); Red Cell Distribution Width 13.3 % (13.2-15.2)
[2021-10-14 22:34] LABS: Alanine Aminotransferase 50 units/L (7-56); Blood Urea Nitrogen 11 mg/dL (9-20); Calcium 10.1 mg/dL (8.4-10.2); Hemolysis Index 3
[2021-10-14] MEDS ORDERED: SODIUM CHLORIDE 0.9% 1000 ML 1,000 ML IV ONE (22:38)
[2021-10-14] MEDS ORDERED: MORPHINE 4 MG/1 ML INJ IV ONE (22:38)
[2021-10-14] MEDS ORDERED: ONDANSETRON 4 MG/2 ML INJ IV ONE (22:38)
[2021-10-14] MEDS ORDERED: PANTOPRAZOLE 40 MG INJ IV ONE (22:39)
[2021-10-14 22:42] LABS: BUN/Creatinine Ratio 18
--- NOTE | 2021-10-14 22:43 | Emergency Department Report ---
ED Abdominal Pain HPI - General Chief Complaint: Chest Pain Stated Complaint: CHEST PAIN/BODYACHE/HEADACHE/CHILLS Time Seen by Provider: 10/14/21 22:17 Source: patient Mode of arrival: Ambulatory Limitations: No Limitations - History of Present Illness Initial Comments: Patient is 51 years old male with history of hypertension hyperlipidemia. Patient presented to the ER complaining of epigastric abdominal pain, sharp with radiation to the mid chest. Patient stated that pain started this morning. Pain associated with nausea, vomiting and diarrhea. Patient stated that he is unable to keep anything down. Patient denied any fever or chills. No shortness of breath or cough. MD Complaint: abdominal pain -: This morning Location: epigastric Radiation: chest Severity scale (0 -10): 6 Quality: sharp Consistency: constant Associated Symptoms: nausea, vomiting, diarrhea - Related Data Previous Rx's Medication Instructions Recorded Last Taken Type Acetaminophen [Acetaminophen TAB] 650 mg PO Q4H PRN tablet 05/10/20 Unknown Rx Metoprolol [Lopressor TAB] 100 mg PO BID #60 tablet 05/10/20 Unknown Rx Pantoprazole [Protonix TAB] 40 mg PO QDAY #30 tablet 05/10/20 Unknown Rx levoFLOXacin [Levaquin TAB] 750 mg PO QDAY #7 tablet 05/10/20 Unknown Rx lisinopriL [Zestril TAB] 40 mg PO QDAY #30 tablet 05/10/20 Unknown Rx Allergies Allergy/AdvReac Type Severity Reaction Status Date / Time No Known Allergies Allergy Verified 07/12/16 16:14 ED Review of Systems ROS: Stated complaint: CHEST PAIN/BODYACHE/HEADACHE/CHILLS Other details as noted in HPI Comment: All other systems reviewed and negative Constitutional: denies: chills, fever Respiratory: denies: cough, shortness of breath, SOB with exertion Cardiovascular: chest pain. denies: palpitations, dyspnea on exertion Gastrointestinal: abdominal pain, nausea, vomiting, diarrhea. denies: constipation, hematemesis, melena, hematochezia Musculoskeletal: denies: back pain Neurological: denies: headache, weakness, numbness, paresthesias, confusion, abnormal gait ED Past Medical Hx - Past Medical History Previous Medical History?: Yes Hx Hypertension: Yes Hx Congestive Heart Failure: No Hx Diabetes: No Hx Headaches / Migraines: Yes Hx Asthma: Yes Additional medical history: High Cholesterol - Surgical History Past Surgical History?: No - Social History Smoking Status: Never Smoker Substance Use Type: None - Medications Home Medications: Home Medications Medication Instructions Recorded Confirmed Last Taken Type Acetaminophen [Acetaminophen TAB] 650 mg PO Q4H PRN tablet 05/10/20 Unknown Rx Metoprolol [Lopressor TAB] 100 mg PO BID #60 tablet 05/10/20 Unknown Rx Pantoprazole [Protonix TAB] 40 mg PO QDAY #30 tablet 05/10/20 Unknown Rx levoFLOXacin [Levaquin TAB] 750 mg PO QDAY #7 tablet 05/10/20 Unknown Rx lisinopriL [Zestril TAB] 40 mg PO QDAY #30 tablet 05/10/20 Unknown Rx ED Physical Exam - General Limitations: No Limitations General appearance: alert, in no apparent distress - Head Head exam: Present: atraumatic, normocephalic, normal inspection - ENT ENT exam: Present: mucous membranes dry - Neck Neck exam: Present: normal inspection, full ROM. Absent: tenderness, meningismus - Respiratory Respiratory exam: Present: normal lung sounds bilaterally - Cardiovascular Cardiovascular Exam: Present: regular rate, normal rhythm, normal heart sounds - GI/Abdominal GI/Abdominal exam: Present: soft, normal bowel sounds. Absent: distended, tenderness, guarding, rebound, rigid, organomegaly, mass, bruit, pulsatile mass, hernia - Extremities Exam Extremities exam: Present: normal inspection, full ROM, normal capillary refill. Absent: tenderness, pedal edema, joint swelling, calf tenderness - Back Exam Back exam: Present: normal inspection, full ROM. Absent: CVA tenderness (R), CVA tenderness (L) - Neurological Exam Neurological exam: Present: alert, oriented X3, CN II-XII intact, normal gait, reflexes normal. Absent: motor sensory deficit - Psychiatric Psychiatric exam: Present: normal mood - Skin Skin exam: Present: warm, intact, normal color ED Course Vital Signs 10/14/21 20:49 Temperature 98.1 F Pulse Rate 103 H Respiratory 16 Rate Blood Pressure 149/100 O2 Sat by Pulse 99 Oximetry ED Medical Decision Making - Lab Data Result diagrams: 10/14/21 21:39 10/14/21 21:39 - EKG Data -: EKG Interpreted by Ks EKG shows normal: sinus rhythm - EKG Data Interpretation: no acute changes - Radiology Data Radiology results: report reviewed - Medical Decision Making Patient is 51 years old male with history of hypertension hyperlipidemia. Angelika xiong presented to the ER complaining of epigastric abdominal pain, sharp with radiation to the mid chest. Patient stated that pain started this morning. Pain associated with nausea, vomiting and diarrhea. Patient stated that he is unable to keep anything down. Patient denied any fever or chills. No shortness of breath or cough. EKG is nonspecific. Troponin is negative x2. Patient symptom is more abdominal and patient having nausea vomiting and diarrhea. CT abdomen and pelvis is unremarkable also. Chest x-ray is negative. Patient received morphine, Zofran and Protonix and stated that he is feeling much better. Patient advised to follow-up with his primary doctor for outpatient cardiac work-up and to return to the ER if he develop any new symptoms. Critical care attestation.: If time is entered above; I have spent that time in minutes in the direct care of this critically ill patient, excluding procedure time. ED Disposition Clinical Impression: Chest pain, Acute abdominal pain, Nausea vomiting and diarrhea Disposition: HOME / SELF CARE / HOMELESS Is pt being admited?: No Condition: Stable Instructions: Nonspecific Chest Pain, Adult, Nausea and Vomiting, Adult, Diarrhea, Adult, [id number] Referrals: [facility] [Primary Care Provider] - 3-5 Days
--- NOTE | 2021-10-15 01:51 | Cat Scan Report ---
CT ABDOMEN AND PELVIS WITH IV CONTRAST INDICATION: abdominal pain. COMPARISON: CT 12-18. TECHNIQUE: All CT scans at this facility use dose modulation, automated exposure control, iterative reconstructi on or weight based dosing, when appropriate, to reduce radiation dose to as low as reasonably achieva ble. FINDINGS: Lung Bases: No significant abnormality. Skeletal System: No acute abnormality. ABDOMEN: Liver: Steatosis. Gallbladder: No significant abnormality. Bile Ducts: No significant abnormality. Adrenals: No significant abnormality. Right Kidney: No significant abnormality. Left Kidney: No significant abnormality. Pancreas: No significant abnormality. Spleen: No significant abnormality. Upper GI tract: No significant abnormality. Lymph Nodes: No significant adenopathy. Aorta: No significant abnormality. Additional Findings: No significant abnormality. PELVIS: Colon: No acute abnormality. Urinary Bladder and Distal Ureters: No significant abnormality. Appendix: No significant abnormality. Lymph Nodes: No significant adenopathy. Additional Findings: None. IMPRESSION: 1. No acute process in the abdomen or pelvis. 2. Incidental findings, as above. Signer Name: Raheem Ovalles MD Signed: 10/15/2021 1:47 AM Workstation Name: [id number]
[2021-10-15 02:35] VITALS: BP 145/98
--- NOTE | 2021-10-15 09:39 | Electrocardiograph Report ---
[facility] Test Date: 2021-10-14 Test Time: 20:57:00 Pat Name: SALAS HASKINS JR Department: Room: Gender: M Preparer: : 1970 Requested By: SEA KAM Order Number: [id number] Reading MD: Dick Nicole Measurements Intervals [place] Rate: 96 P: 72 NH: 155 QRS: 50 QRSD: 85 T: 51 QT: 375 QTc: 475 Interpretive Statements Sinus rhythm Probable left atrial enlargement Probable left ventricular hypertrophy ST elevation, consider anterior injury No previous ECG available for comparison Electronically Signed On 10-15-2021 9:39:27 EST by Dick Nicole
== END 2021-10-15 02:35 | disposition home or self-care (01) ==
LOC: ED 20:44
DX: R07.9 Chest pain, unspecified (principal); R10.9 Unspecified abdominal pain; R11.2 Nausea with vomiting, unspecified; R19.7 Diarrhea, unspecified; I10 Essential (primary) hypertension; J45.909 Unspecified asthma, uncomplicated
CPT/HCPCS: 36415; 71046; 74177; 80053; 83690; 84484; 85025; 93005; 93010; 96374; 96375; 99284; C9113; J2270; J2405; J7030; Q9967; Q0162